=== PATIENT | female | born 1995 | race Caucasian/White ===

== ENCOUNTER 2016-10-04 00:34 | Emergency (ER) | payer SELFPAY ==
--- NOTE | 2016-10-04 00:47 | ED Physician Documentation ---
General Adult - HISTORIAN Historian: patient - HPI Stated Complaint: headache Chief Complaint: General Adult Onset: hours Timing: still present Severity: moderate Further Comments: yes (Pt is a 21 yo female with c/o migraine headache. Pt has had migraine headaches in the past and says that headache is similar on this occasion. 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 Pt has had photophobia, nausea. No focal deficits.) - ROS CONST: other (dizziness) EYES/ENT: other (photophobia) CVS/RESP: none GI/: nausea MS/SKIN/LYMPH: none NEURO/PSYCH: headache - PAST HX Past History: other (migraine headache) Surgeries/Procedures: other (tonsillectomy) Allergies/Adverse Reactions: Allergies Allergy/AdvReac Type Severity Reaction Status Date / Time No Known Allergies Allergy Verified 10/04/16 01:16 Home Medications: Ambulatory Orders Medication Instructions Recorded NK [NK] 03/28/16 - SOCIAL HX Smoking History: cigarettes - FAMILY HX Family History: No - VITAL SIGNS Vital Signs: Vital Signs Temp Pulse Resp BP Pulse Ox 128/64 09/10/16 02:15 - REVIEWED ASSESSMENTS Nursing Assessment Reviewed: Yes Vitals Reviewed: Yes Progress - Progress Progress: NS 1 L IVF Zofran 4 mg IV Dilaudid 1 mg IV improved. General Adult Physical Exam - PHYSICAL EXAM GENERAL APPEARANCE: moderate distress EENT: eye inspection normal, pharynx normal NECK: normal inspection, supple RESPIRATORY: no resp distress, chest non-tender, breath sounds normal CVS: reg rate & rhythm, heart sounds normal ABDOMEN: soft, no organomegaly, normal bowel sounds BACK: normal inspection, no CVA tenderness SKIN: warm/dry, normal color EXTREMITIES: non-tender, normal range of motion, no evidence of injury NEURO: oriented X3, CN's nml as tested, motor nml, sensation nml Discharge Clincal Impression: Migraine headache Qualifiers: Migraine type: without aura Status migrainosus presence: without status migrainosus Intractability: not intractable Qualified Code(s): G43.009 - Migraine without aura, not intractable, without status migrainosus Referrals: Primary Doctor,No [Primary Care Provider] - Home Medications: Ambulatory Orders NK [NK] 03/28/16 Condition: Good Disposition: 01 HOME, SELF-CARE Decision to Admit: NO Decision Time: 01:55
[2016-10-04] MEDS: ONDANSETRON HCL/PF 4 MG/ 2ML VIAL IVP ONE (01:05)
[2016-10-04] MEDS: HYDROmorphone HCL/PF 1 MG/ML DISP.SYRIN IVP ONE (01:05)
[2016-10-04] MEDS: 0.9 % SODIUM CHLORIDE 1,000 ML IV ONE (01:05)
[2016-10-04 01:22] VITALS: BP 121/77
[2016-10-04] MEDS: KETOROLAC TROMETHAMINE 30 MG/1ML VIAL IVP ONE (01:37)
== END 2016-10-04 02:13 | disposition home or self-care (01) ==
LOC: ED 00:34
DX: G43.009 Migraine without aura, not intractable, without status migrainosus (principal)
CPT/HCPCS: J1170; J1885; J2405; J7030; 96361; 96374; 96375; 99283; S1016

== ENCOUNTER 2017-01-29 13:01 | Emergency (ER) | payer SELFPAY ==
--- NOTE | 2017-01-29 13:44 | ED Physician Documentation ---
Hip Injury/Pain - HISTORIAN Historian: patient - HPI Stated Complaint: Bilateral Hip Pain s/p Fall Chief Complaint: Hip Pain Additional Information: states she fell 6 feet and landed on her R hip, 3 days ago. She has bruising 4CM R hip. But now complains of left hip/flank/thigh pain. worse when weight bearing. sharp achy type pain. no previous injury. dull pain R hip. no other injuries. no other complaints. Onset: days ago Where: home Severity: mild Duration: intermittent pain Context: fall Symptoms Prior to Fall: none Other Injuries: none Subsequent Symptoms: denies: sensory loss, motor loss, numbness Further Comments: yes - ROS CONST: no problems RESP: denies: shortness of breath GI/: none. denies: abdominal pain EYES/ENT: none. denies: problems with vision MS/SKIN/LYMPH: denies: neck pain NEURO/PSYCH: denies: confusion - PAST HX Cardiac Disease: none PE Risk Factors: none Surgeries/Procedures: none Immunizations: UTD Allergies/Adverse Reactions: Allergies Allergy/AdvReac Type Severity Reaction Status Date / Time No Known Allergies Allergy Verified 01/29/17 13:50 Home Medications: Ambulatory Orders Medication Instructions Recorded NK [NK] 03/28/16 - SOCIAL HX Smoking History: non-smoker Alcohol Use: none Drug Use: none - FAMILY HX Family History: No - VITAL SIGNS Vital Signs: Vital Signs Temp Pulse Resp BP Pulse Ox 88 18 123/81 99 01/29/17 13:05 01/29/17 13:05 01/29/17 13:05 01/29/17 13:05 - REVIEWED ASSESSMENTS Nursing Assessment Reviewed: Yes Vitals Reviewed: Yes ED Results Lab/Radiology - Radiology Radiology Impressions: pelvis , lumbar spine NAD. my interpretation NAD- radiologist - Orders Orders: ED Orders Category Date Time Status BILAT HIPS 2V (W/PEL IF DONE) [RAD] Stat Exams 01/29/17 13:11 Stop Req LUMBAR SPINE XR 2 OR 3 VIEWS [L SPINE 2 OR 3 VIEWS] [ Exams 01/29/17 13:11 Ordered RAD] Stat PELVIS AP 1 OR 2 VIEWS [RAD] Stat Exams 01/29/17 13:26 Ordered Ketorolac Tromethamine [Toradol] Med 01/29/17 14:17 Discontinued 60 mg IM NOW ONE methylPREDNISolone SOD SUCC [Solu-MEDROL] Med 01/29/17 14:17 Discontinued 125 mg IM NOW ONE Hip Injury/Pain Physical Exam - EXAM General Appearance: no acute distress, alert Extremities: no pedal edema, no deformity of knee, hip pain on leg movement, hip tenderness, ecchymosis. No: shortening of leg, external rotation of leg, pedal edema, knee tenderness EENT: ENT inspection normal Neck: nml inspection Respiratory: chest non-tender Abdomen: non-tender Back: non-tender Skin: warm/dry, normal color Neuro/Psych: oriented x3, neuro grossly intact, mood/affect nml Discharge Clincal Impression: Lumbar radiculopathy, acute, Fall from height of greater than 3 feet Strain of left hip and thigh Qualifiers: Encounter type: initial encounter Qualified Code(s): S76.012A - Strain of muscle, fascia and tendon of left hip, initial encounter; S76.912A - Strain of unspecified muscles, fascia and tendons at thigh level, left thigh, initial encounter Lumbar strain Qualifiers: Encounter type: initial encounter Qualified Code(s): S39.012A - Strain of muscle, fascia and tendon of lower back, initial encounter Contusion of right hip and thigh Qualifiers: Encounter type: initial encounter Qualified Code(s): S70.01XA - Contusion of right hip, initial encounter; S70.11XA - Contusion of right thigh, initial encounter Home Medications: Ambulatory Orders NK [NK] 03/28/16 Condition: Stable Disposition: 01 HOME, SELF-CARE Decision to Admit: NO Date of Decison to Admit: 01/29/17 Decision Time: 14:28
[2017-01-29] MEDS ORDERED: KETOROLAC TROMETHAMINE 60 MG/2 ML VIAL IM ONE (14:17)
[2017-01-29] MEDS ORDERED: methylPREDNISolone SOD SUCC 125 MG/2 ML VIAL IM ONE (14:17)
[2017-01-29 14:44] VITALS: BP 118/52
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
== END 2017-01-29 14:40 | disposition home or self-care (01) ==
LOC: ED 13:01
DX: S76.012A Strain of muscle, fascia and tendon of left hip, initial encounter (principal); S39.012A Strain of muscle, fascia and tendon of lower back, initial encounter; S70.01XA Contusion of right hip, initial encounter; W19.XXXA Unspecified fall, initial encounter; Y93.9 Activity, unspecified; Y99.9 Unspecified external cause status
CPT/HCPCS: 72100; 72170; J1885; J2930; 96372; 99284

== ENCOUNTER 2017-02-04 01:24 | Emergency (ER) | payer SELFPAY ==
[2017-02-04] MEDS ORDERED: HALOPERIDOL LACTATE 5 MG/ML VIAL IM ONE (01:55)
[2017-02-04] MEDS: HALOPERIDOL LACTATE 5 MG/ML VIAL IM ONE (02:02)
[2017-02-04] MEDS ORDERED: KETOROLAC TROMETHAMINE 60 MG/2 ML VIAL ONE (03:24)
[2017-02-04] MEDS: KETOROLAC TROMETHAMINE 60 MG/2 ML VIAL IM ONE (03:45)
--- NOTE | 2017-02-04 04:46 | ED Physician Documentation ---
Headache - HISTORIAN Historian: patient - HPI Stated Complaint: migraine/chest pain Chief Complaint: Headache Additional Information: stress in family, headache and chest pain tonight Onset: hours (1) Timing: abrupt, still present New Gradual Onset: Yes Exposure To: none Severity: moderate Quality: similar to previous, throbbing Associated Symptoms: sensitivity to light Preceding Symptoms: denies: visual disturbance, scotoma, typical of prior aura(s ) Exacerbated By: light, noise Further Comments: no - ROS NEURO/PSYCH: anxiety EYES/ENT: denies: sore throat, difficulty swallowing, sinus pain, drainage CVS/RESP: none GI/: denies: abdominal pain, diarrhea, problems urinating, incontinence MS/SKIN/LYMPH: denies: muscle aches, back pain, rash, skin lesions, swollen glands all systems neg except as marked: Yes - PAST HX Medical History: migraines, other (anxiety) Surgical History: tonsillectomy Immunizations: referred to PCP Allergies/Adverse Reactions: Allergies Allergy/AdvReac Type Severity Reaction Status Date / Time No Known Allergies Allergy Verified 02/04/17 01:40 Home Medications: Ambulatory Orders Medication Instructions Recorded NK [NK] 03/28/16 - SOCIAL HX Smoking History: cigarettes Alcohol Use: none Drug Use: none - Family HX Family History: none - VITAL SIGNS Vital Signs: Vital Signs Temp Pulse Resp BP Pulse Ox 97.9 F 88 19 128/87 98 02/04/17 01:24 02/04/17 01:24 02/04/17 01:24 02/04/17 01:24 02/04/17 01:24 - REVIEWED ASSESSMENTS Nursing Assessment Reviewed: Yes Vitals Reviewed: Yes Progress - Results/Orders Results/Orders: toradol 60 mg im, haldol 10 mg im ordered - Progress Progress: pt. improved with above medications on board Critical Care Note - Critical Care Note Total Time (mins): 0 ED Results Lab/Radiology - Lab Results Lab Results: none ordered - Radiology Radiology Impressions: none ordered - Orders Orders: ED Orders Category Date Time Status Haloperidol Lactate [Haldol] Med 02/04/17 01:55 Discontinued 10 mg IM .STK-MED ONE Haloperidol Lactate [Haldol] Med 02/04/17 01:54 Discontinued 10 mg IM NOW ONE Ketorolac Tromethamine [Toradol] Med 02/04/17 03:24 Discontinued 60 mg .ROUTE .STK-MED ONE Ketorolac Tromethamine [Toradol] Med 02/04/17 03:44 Discontinued 60 mg IM NOW ONE Headache Physical Exam - EXAM General Appearance: no acute distress, moderate distress EENT: no facial swelling, eyes nml inspection, PERRL Neck: normal inspection, thyroid normal, supple Respiratory: no resp distress, chest non-tender, breath sounds normal CVS: reg. rate & rhythm, heart sounds nml Abdomen: non-tender, no organomegaly, nml bowel sounds Skin: color nml, no rash, cyanosis Extremitites: non-tender, normal range of motion, no evidence of injury - NEURO/PSYCH Higher Functions: alert, oriented x3, nml speech, mood/affect nml Cranial: nml as tested, no evidence of acute CVA Cerebellar: nml as tested Sensorimotor: motor nml, sensation nml Discharge Clincal Impression: Migraine Qualifiers: Migraine type: without aura Status migrainosus presence: without status migrainosus Intractability: intractable Qualified Code(s): G43.019 - Migraine without aura, intractable, without status migrainosus Referrals: Primary Doctor,No [Primary Care Provider] - 2 Days Home Medications: Ambulatory Orders NK [NK] 03/28/16 Comments: pt. discharged to care of mother with script for Fioricet 1 p.o. qid prn headache and Phenergan 12.5 mg p.o. tid prn anxiety Condition: Stable Disposition: 01 HOME, SELF-CARE Decision to Admit: NO Decision Time: 03:30
[2017-02-04 05:35] VITALS: BP 106/52
== END 2017-02-04 04:01 | disposition home or self-care (01) ==
LOC: ED 01:24
DX: G43.019 Migraine without aura, intractable, without status migrainosus (principal)
CPT/HCPCS: 93005; J1630; J1885; 96372; 99283

== ENCOUNTER 2017-03-20 11:43 | Emergency (ER) | payer SELFPAY ==
[2017-03-20] MEDS: cefTRIAXone SODIUM 1 GM VIAL IM ONE (12:55)
[2017-03-20 13:07] VITALS: BP 118/52
[2017-03-20] MEDS ORDERED: DIAZEPAM 5 MG TABLET PO ONE (15:35)
--- NOTE | 2017-03-20 15:47 | ED Physician Documentation ---
General Adult - HISTORIAN Historian: patient - HPI Stated Complaint: painful lumps right back Chief Complaint: General Adult Onset: days ago (2) Timing: still present Severity: moderate Further Comments: yes (Pt is a 21 yo female with "lumps in her lower back." She noticed them 2 days ago and they are tender.) - ROS CONST: no problems EYES/ENT: none CVS/RESP: none GI/: none MS/SKIN/LYMPH: other ("bug bites" lower back) - PAST HX Past History: other (anxiety/depression) Allergies/Adverse Reactions: Allergies Allergy/AdvReac Type Severity Reaction Status Date / Time No Known Allergies Allergy Verified 03/20/17 11:54 Home Medications: Ambulatory Orders Medication Instructions Recorded NK [NK] 03/28/16 - SOCIAL HX Smoking History: cigarettes - FAMILY HX Family History: No - VITAL SIGNS Vital Signs: Vital Signs Temp Pulse Resp BP Pulse Ox 100.9 F H 97 H 16 130/91 98 03/20/17 11:55 03/20/17 11:55 03/20/17 11:55 03/20/17 11:55 03/20/17 11:55 - REVIEWED ASSESSMENTS Nursing Assessment Reviewed: Yes Vitals Reviewed: Yes Progress - Progress Progress: Rocephin 1 gm IM in ER Rx Keflex 500 mg po tid x 10 days. At the end of the visit pt asked if we could refill her Klonopin prescription. She says that she fills this at [facility] pharmacy in [place], but won't be able to get there for a week. She lists [facility] in [place] as her regular pharmacy. Both these pharmacies were contacted and say that they have not filled Klonopin for this patient. Pt was not given a "refill" script for Klonopin. ED Results Lab/Radiology - Orders Orders: ED Orders Category Date Time Status cefTRIAXone SODIUM [Rocephin] Med 03/20/17 12:27 Once 1 gm IM NOW ONE General Adult Physical Exam - PHYSICAL EXAM GENERAL APPEARANCE: mild distress EENT: pharynx normal NECK: normal inspection, supple RESPIRATORY: no resp distress, chest non-tender, breath sounds normal CVS: reg rate & rhythm, heart sounds normal ABDOMEN: soft, no organomegaly, normal bowel sounds BACK: other (3 erthematous, excoriated lesions on lower back, 1-2 cm each. Pt attributes to bug bites. Tender swellings in the deep to and near these, c/w lymphadenopathy.) SKIN: other (3 erthematous, excoriated lesions on lower back, 1-2 cm each. Pt attributes to bug bites. Tender swellings in the deep to and near these, c/w lymphadenopathy.) EXTREMITIES: non-tender, normal range of motion, no evidence of injury NEURO: oriented X3, motor nml, sensation nml Discharge Clincal Impression: Lymphadenopathy Referrals: Primary Doctor,No [Primary Care Provider] - 2 Days Home Medications: Ambulatory Orders NK [NK] 03/28/16 Condition: Good Disposition: 01 HOME, SELF-CARE Decision to Admit: NO Decision Time: 12:31
== END 2017-03-20 13:06 | disposition home or self-care (01) ==
LOC: ED 11:43
DX: R59.1 Generalized enlarged lymph nodes (principal)
CPT/HCPCS: 96372; 99283; J0696

== ENCOUNTER 2017-04-18 10:54 | Emergency (ER) | payer SELFPAY ==
--- NOTE | 2017-04-18 11:19 | ED Physician Documentation ---
General Adult - HISTORIAN Historian: patient - HPI Stated Complaint: sore mouth Chief Complaint: General Adult Onset: days ago (3 days) Timing: still present, worse since Severity: moderate Further Comments: yes (Patient states that she has developed a sore in you mouth 3 days ago, seems to be getting worse. Is starting to have some trouble with eating and drinking. Tried to put some lidocaine on it and over the surface of the rest of her mouth and it "did nothing for me. The only thing that got numb was my finger tips") - ROS CONST: no problems. denies: fever, chills CVS/RESP: none MS/SKIN/LYMPH: denies: none NEURO/PSYCH: denies: headache - PAST HX Past History: none Other History: other (anxiety/panic attacks) Surgeries/Procedures: other (T&A) Allergies/Adverse Reactions: Allergies Allergy/AdvReac Type Severity Reaction Status Date / Time fluoxetine HCl [From Prozac] Allergy Verified 04/18/17 11:28 paroxetine HCl [From Paxil] Allergy Verified 04/18/17 11:28 ropinirole HCl [From Requip] Allergy Verified 04/18/17 11:20 Home Medications: Ambulatory Orders Medication Instructions Recorded Sertraline HCl [Zoloft] 100 mg PO DAILY 04/18/17 - SOCIAL HX Smoking History: less than 1 pack/day (1/2 ppd) Alcohol Use: none Drug Use: none - FAMILY HX Family History: No - VITAL SIGNS Vital Signs: Vital Signs Temp Pulse Resp BP Pulse Ox 118/52 03/20/17 13:06 - REVIEWED ASSESSMENTS Nursing Assessment Reviewed: Yes Vitals Reviewed: Yes Progress - Progress Progress: Patient was advised that this was caused by a virus and she would need to give it time to heal. Was given visous lidocaine and advised to mix it with some Mylanta. General Adult Physical Exam - PHYSICAL EXAM GENERAL APPEARANCE: no distress EENT: eye inspection normal, pharynx normal, no signs of dehydration, other ( superficial shallow ulceration to the buccal mucosa.) NECK: lymphadenopathy (mild, anterior) RESPIRATORY: no resp distress, chest non-tender, breath sounds normal. No: wheezes, rales, rhonchi CVS: reg rate & rhythm, heart sounds normal, equal pulses SKIN: warm/dry, normal color NEURO: mood/affect nml, cognition normal Discharge Clincal Impression: Herpangina Referrals: Primary Doctor,No [Primary Care Provider] - 2 Days Additional Instructions: Gargle with salt water. Drink a lot of fluids. This condition is contagious. Symptom should improve within a week. Home Medications: Ambulatory Orders Sertraline HCl [Zoloft] 100 mg PO DAILY 04/18/17 Condition: Stable Disposition: 01 HOME, SELF-CARE Decision to Admit: NO Date of Decison to Admit: 04/18/17 Decision Time: 11:34
[2017-04-18 11:27] VITALS: BP 126/88
== END 2017-04-18 11:55 | disposition home or self-care (01) ==
LOC: ED 10:54
DX: B08.5 Enteroviral vesicular pharyngitis (principal)
CPT/HCPCS: 99283

== ENCOUNTER 2017-06-22 17:53 | Emergency (ER) | payer SELFPAY ==
[2017-06-22] MEDS ORDERED: KETOROLAC TROMETHAMINE 60 MG/2 ML VIAL IM ONE (18:10)
[2017-06-22] MEDS ORDERED: ONDANSETRON HCL/PF 4 MG/ 2ML VIAL IM ONE (18:10)
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
--- NOTE | 2017-06-22 18:42 | Diagnostic Imaging Report ---
NEELA ESCOBEDO~ [facility] [address] [facility] [address] [address] ~ ~ ~ ~ Report Submission Date: Jun 22, 2017 6:40:18 PM CDT Patient ~ Study Name: MILLIE QUEEN ~ Date: Jun 22, 2017 6:17:30 PM CDT ~ Modality Type: CR Gender: F ~ Description: UPPER EXTREMITY : 94 ~ Institution: [facility] Physician: NEELA ESCOBEDO ~ ~ ~ ~ Examination: Plain film hand History: Hand discomfort Comparison exams: None available Findings: 3 views the hand demonstrate normal cortical margins. No fracture.~ No dislocation. No soft tissue abnormality. Impression: No acute osseous abnormality ~ Electronically signed on Jun 22, 2017 6:40:18 PM CDT by: Fredrick HALL
[2017-06-22] MEDS ORDERED: diphenhydrAMINE HCL 50 MG/ML VIAL IM ONE (19:02)
[2017-06-22 19:28] VITALS: BP 128/62
== END 2017-06-22 19:25 | disposition home or self-care (01) ==
LOC: ED 17:53
DX: R51 Headache (principal); M79.1 Myalgia
CPT/HCPCS: 73130; J1200; J1885; J2405; 96372; 99283

== ENCOUNTER 2017-09-16 12:49 | Emergency (ER) | payer SELFPAY ==
--- NOTE | 2017-09-16 12:58 | ED Physician Documentation ---
Skin Rash - HISTORIAN Historian: patient - HPI Chief Complaint: Skin Rash Additional Information: 22-year-old white female who states that she had some skin rash over the last three weeks. Patient had a lesion to her mid upper gluteal falls area that she is concerned about possible MSRA. Patient is not had any training from [facility]. Patient data area is tender to touch. Patient over the last several days has developed the region to the inferior nasal area and left chin. Patient denies any fever or chills. Onset: other (3 weeks ) Timing: still present Location: facial, trunk Identified Cause?: No Where: other ([facility]) - ROS CONST: none. denies: fever, chills - PAST HX Past History: none Other History: none Surgeries/Procedures: No Immunizations: referred to PCP Allergies/Adverse Reactions: Allergies Allergy/AdvReac Type Severity Reaction Status Date / Time fluoxetine HCl [From Prozac] Allergy Verified 09/16/17 13:02 paroxetine HCl [From Paxil] Allergy Verified 09/16/17 13:02 ropinirole HCl [From Requip] Allergy Verified 09/16/17 13:02 Home Medications: Ambulatory Orders Medication Instructions Recorded Doxycycline Monohydrate 100 mg PO D #14 capsule 09/16/17 [Vibramycin] - SOCIAL HX Smoking History: less than 1 pack/day (1/2 ppd) Alcohol Use: none Drug Use: none - FAMILY HX Family History: none - VITAL SIGNS Vital Signs: Vital Signs Temp Pulse Resp BP Pulse Ox 98.3 F 89 16 150/86 98 09/16/17 13:13 09/16/17 13:13 09/16/17 13:13 09/16/17 13:13 09/16/17 13:13 - REVIEWED ASSESSMENTS Nursing Assessment Reviewed: Yes Vitals Reviewed: Yes Progress - Results/Orders Results/Orders: I did not have any drainage to culture. Patient was advised that the not feel that this was an MRSA infection possibly related to strep or other staph. Skin Rash Physical Exam - EXAM General Appearance: no acute distress Skin: warm,dry Location: face (infranasal area, chin), other (1.8 cm area to superior gluteal fold, hard, nodular) Symptoms: warmth, tenderness Neck: trachea midline, lymphadenopathy (on left anterior) Respiratory: no resp distress CVS: reg. rate & rhythm Neuro/Psych: oriented x3, mood/affect nml Discharge Clincal Impression: Cellulitis of buttock Cellulitis Qualifiers: Site of cellulitis: face Qualified Code(s): L03.211 - Cellulitis of face Prescriptions: Doxycycline Monohydrate [Vibramycin] 100 mg PO D #14 capsule Referrals: Primary Doctor,No [Primary Care Provider] - 2 Days Additional Instructions: Take Doxycycline 100mg twice a day for seven days. If not doing any better in one week to follow-up with your primary care provider. Condition: Stable Disposition: 01 HOME, SELF-CARE Decision to Admit: NO Date of Decison to Admit: 09/16/17 Decision Time: 13:01
[2017-09-16 13:06] VITALS: BP 150/86
== END 2017-09-16 13:13 | disposition home or self-care (01) ==
LOC: ED 12:49
DX: L03.317 Cellulitis of buttock (principal); L03.211 Cellulitis of face
CPT/HCPCS: 99283

== ENCOUNTER 2017-10-14 17:05 | Emergency (ER) | payer SELFPAY ==
[2017-10-14 17:44] VITALS: BP 117/63
--- NOTE | 2017-10-14 18:23 | ED Physician Documentation ---
Skin Rash - HISTORIAN Historian: patient - HPI Stated Complaint: bug bites Chief Complaint: Skin Rash Additional Information: diffuse skin rash sl similar to urticaria-onset while visiting klpt at [facility] yesterday-spreading scratching makes worse Onset: days ago (1) Timing: worse Duration: persistent since Location: generalized Quality: itchy, burning. denies: painful Identified Cause?: No Context: Medication Exposure: none Context: Food Exposure: none Context: Other Exposure: denies: bee sting, wasp sting, ant bite, spider bite - ROS CONST: none CVS/RESP: none EYES/ENT: none GI/: none MS/SKIN/LYMPH: none NEURO/PSYCH: none - PAST HX Past History: none Other History: allergy to poison ibeth, other (had prev scabies) Allergies/Adverse Reactions: Allergies Allergy/AdvReac Type Severity Reaction Status Date / Time fluoxetine HCl [From Prozac] Allergy Verified 10/14/17 17:39 paroxetine HCl [From Paxil] Allergy Verified 10/14/17 17:39 ropinirole HCl [From Requip] Allergy Verified 10/14/17 17:39 Home Medications: Ambulatory Orders Medication Instructions Recorded NK [NK] 10/14/17 - SOCIAL HX Smoking History: less than 1 pack/day Alcohol Use: rarely Drug Use: none - FAMILY HX Family History: none - VITAL SIGNS Vital Signs: Vital Signs Temp Pulse Resp BP Pulse Ox 98.2 F 84 16 117/63 99 10/14/17 17:41 10/14/17 17:41 10/14/17 17:41 10/14/17 17:41 10/14/17 17:41 - REVIEWED ASSESSMENTS Nursing Assessment Reviewed: Yes Vitals Reviewed: Yes Skin Rash Physical Exam - EXAM General Appearance: mild distress, moderate distress Skin: warm,dry, tender indurated area, skin rash, erythema. No: pointing fluctuant with lymphangitis Location: generalized Character: asymmetric, urticarial Symptoms: warmth Extremities: non-tender, nml ROM, no edema Neck: trachea midline Respiratory: no resp distress, chest non-tender, breath sounds normal CVS: reg. rate & rhythm, heart sounds nml Abdomen: non-tender Neuro/Psych: oriented x3, motor nml, sensation nml, mood/affect nml Discharge Clincal Impression: skin rash udo-urticaria Referrals: Primary Doctor,No [Primary Care Provider] - 2 Days Additional Instructions: get otc claritin and zantac Condition: Good Disposition: 01 HOME, SELF-CARE Decision to Admit: NO Decision Time: 18:27
[2017-10-14] MEDS ORDERED: methylPREDNISolone SOD SUCC 125 MG/2 ML VIAL IM ONE (18:26)
== END 2017-10-14 19:00 | disposition home or self-care (01) ==
LOC: ED 17:05
DX: L50.9 Urticaria, unspecified (principal)
CPT/HCPCS: 96372; 99282; J2930

== ENCOUNTER 2018-04-30 23:09 | Emergency (ER) | payer SELFPAY ==
[2018-04-30] MEDS ORDERED: KETOROLAC TROMETHAMINE 60 MG/2 ML VIAL IM ONE (23:30)
--- NOTE | 2018-04-30 23:32 | ED Physician Documentation ---
Sore Throat/Dental Pain - HISTORIAN Historian: patient - HPI Chief Complaint: Dental Pain Further Comments: yes (22 year old female patient presents with left ear pain /; radiating to eye and jaw.) - ROS CONST: no problems CVS/RESP: none GI/: denies: nausea, vomiting MS/SKIN/LYMPH: denies: muscle aches, rash, leg swelling NEURO/PSYCH: headache. denies: none - PAST HX Past History: denies: none Other History: other (depression - stopped her medications) Allergies/Adverse Reactions: Allergies Allergy/AdvReac Type Severity Reaction Status Date / Time fluoxetine HCl [From Prozac] Allergy Verified 04/30/18 23:22 paroxetine HCl [From Paxil] Allergy Verified 04/30/18 23:22 ropinirole HCl [From Requip] Allergy Verified 04/30/18 23:22 Home Medications: Ambulatory Orders Medication Instructions Recorded NK [NK] 10/14/17 - SOCIAL HX Smoking History: cigarettes - FAMILY HX Family History: No - VITAL SIGNS Vital Signs: Vital Signs Temp Pulse Resp BP Pulse Ox 117/63 10/14/17 19:09 - REVIEWED ASSESSMENTS Nursing Assessment Reviewed: Yes Vitals Reviewed: Yes Progress - Progress Progress: Patient states she doesn't have a dentist and no money for oral surgeon. [facility] information provided. Treated for pain with toradol IM. ED Results Lab/Radiology - Orders Orders: ED Orders Category Date Time Status Ketorolac Tromethamine [Toradol] Med 04/30/18 23:30 Once 60 mg IM NOW ONE Dental Pain Physical Exam - EXAM General Appearance: mild distress Head/Neck: head nml inspection, trachea midline, no lymphadenopathy, thyroid nml , neck nml inspection Eyes: eyes nml inspection, PERRL Mouth/Throat: lips nml, gums nml, pharynx nml, voice nml, no drooling, no air way problems, no thrush, membranes nml, dental tenderness, widespread dental decay (wide spread decay with multiple molars with decay to gumline; no abscess or erythema noted. ). No: gum swelling around teeth Respiratory: no resp. distress CVS: reg. rate & rhythm Abdomen: soft, no organomegaly, normal bowel sounds, no abdominal bruit, no distension Skin: normal color, warm/dry, NR, INT, PAL, DR Neuro/Psych: No: none Discharge Clincal Impression: Chronic dental pain Referrals: Primary Doctor,No [Primary Care Provider] - 2 Days Additional Instructions: Ibuprofen 800mg every 8 hours x 3 days Tylenol 650-1000mg every 4 hours as needed for pain, limit your dose to 4G in 24 hours. Over the counter [employer] - follow package directions. 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 See your dentist as soon as possible Condition: Stable Disposition: 01 HOME, SELF-CARE Decision to Admit: NO Decision Time: 23:31
[2018-05-01 01:44] VITALS: BP 116/82
== END 2018-04-30 23:48 | disposition home or self-care (01) ==
LOC: ED 23:09
DX: K08.89 Other specified disorders of teeth and supporting structures (principal)
CPT/HCPCS: 96372; 99283; J1885

== ENCOUNTER 2018-12-13 18:52 | Emergency (ER) | payer SELFPAY ==
[2018-12-13 19:12] VITALS: BP 162/91
[2018-12-13] MEDS ORDERED: ACETAMINOPHEN 500 MG TABLET PO ONE (19:25)
[2018-12-13] MEDS ORDERED: IBUPROFEN 400 MG TABLET PO ONE (19:25)
--- NOTE | 2018-12-13 19:30 | ED Physician Documentation ---
Upper Respiratory Symptoms - HISTORIAN Historian: patient - HPI Stated Complaint: Congestion Chief Complaint: Upper Respiratory Symptoms Onset: days ago (11) Severity: moderate Associated Symptoms: fever, chills, runny nose, sinus pain, sinus drainage, sore throat, productive cough Further Comments: yes (23 year old female patient presents with complaint of fever, chills, runny nose, congestion, body aches; has not taken any OTC medications today.) - ROS CONST/EYES: denies: weakness, eye redness, eye itching, other CVS/RESP: none LYMPH: denies: leg swelling, rash, swollen glands, ankle swelling, other GI/: none NEURO/PSYCH: denies: fainting, dizziness, confusion, anxiety, depression, other - PAST HX Lung Disease: none Allergies/Adverse Reactions: Allergies Allergy/AdvReac Type Severity Reaction Status Date / Time fluoxetine HCl [From Prozac] Allergy Verified 12/13/18 19:13 paroxetine HCl [From Paxil] Allergy Verified 12/13/18 19:13 ropinirole HCl [From Requip] Allergy Verified 12/13/18 19:13 Home Medications: Ambulatory Orders Medication Instructions Recorded Azithromycin [Zithromax] 250 mg PO DAILY #6 tablet 12/13/18 - SOCIAL HX Smoking History: cigarettes - FAMILY HX Family History: denies: none - VITAL SIGNS Vital Signs: Vital Signs Temp Pulse Resp BP Pulse Ox 98.5 F 92 H 15 162/91 100 12/13/18 19:00 12/13/18 19:00 12/13/18 19:00 12/13/18 19:00 12/13/18 19:00 - REVIEWED ASSESSMENTS Nursing Assessment Reviewed: Yes Vitals Reviewed: Yes ED Results Lab/Radiology - Orders Orders: ED Orders Category Date Time Status INFLUENZA A&B Stat Lab 12/13/18 19:07 Ordered Acetaminophen [Tylenol Extra Strength] Med 12/13/18 19:25 Once 1,000 mg PO NOW ONE Ibuprofen [Advil] Med 12/13/18 19:25 Once 800 mg PO NOW ONE Upper Respiratory Symptoms - EXAM General Appearance: mild distress (ill appearing) EENT: eyes nml inspection, PERRL, pain over sinuses, maxillary, TM erythema (right), purulent nasal drainage. No: pharyngeal erythema Respiratory: no resp. distress, breath sounds nml, no pain on inspiration, speaks full sentences, no pleuritic chest pain, other (cough) CVS: reg rate & rhythm, heart sounds normal, equal pulses, no murmur, no gallop, PMI nml, no JVD, no friction rub, 24 Skin: color nml, no rash, warm,dry Extremities: non-tender, normal range of motion, no evidence of injury, no edema, J, [employer] Neuro/Psych: oriented x3, neuro intact, mood/affect nml, CN's nml as tested Discharge Clincal Impression: Otitis media Qualifiers: Otitis media type: suppurative Chronicity: acute Laterality: right Recurrence: non-recurrent Spontaneous tympanic membrane rupture: without spontaneous rupture Qualified Code(s): H66.001 - Acute suppurative otitis media without spontaneous rupture of ear drum, right ear Maxillary sinusitis Qualifiers: Chronicity: acute Recurrence: non-recurrent Qualified Code(s): J01.00 - Acute maxillary sinusitis, unspecified Prescriptions: Azithromycin [Zithromax] 250 mg PO DAILY #6 tablet Referrals: Primary Doctor,No [Primary Care Provider] - 2 Days Additional Instructions: supervisor bit and shank department your antibiotic and start it today. supervisor bit and shank department an over the counter decongestant such as pseudoped, dayquil and Nyquil at your pharmacy. Dayquil can be taken every 4 hours. (Caution: Dayquil and Nyquil contain 325mg of tyelnol/acetaminophen per tablespoon) You may want to try Vicks rub on your chest and/or feet. Cough drops as needed for cough and sore throat. Increase your fluid intake juices, hot tea, non-caffeinated beverages Use a humidifier in the room where you sleep. You can also sit in a steam filled bathroom 1-2 times a day. Tylenol every 4 hours 650mg -1000mg (do not exceed 4000mg in 24 hours) as needed for fever, pain and body aches. Alternate with Ibuprofen Ibuprofen 600-800mg every 6 hours as needed for fever, pain and body aches. Condition: Stable Disposition: 01 HOME, SELF-CARE Decision to Admit: NO Decision Time: 19:29
== END 2018-12-13 19:30 | disposition home or self-care (01) ==
LOC: ED 18:52
DX: H66.001 Acute suppurative otitis media without spontaneous rupture of ear drum, right ear (principal); J01.00 Acute maxillary sinusitis, unspecified; Z72.0 Tobacco use
CPT/HCPCS: 87400; 99283

== ENCOUNTER 2019-02-07 04:28 | Emergency (ER) | payer SELFPAY ==
[2019-02-07] MEDS ORDERED: ONDANSETRON HCL/PF 4 MG/ 2ML VIAL IVP ONE (04:54)
[2019-02-07] MEDS ORDERED: diphenhydrAMINE HCL 50 MG/ML VIAL IVP ONE (04:54)
[2019-02-07] MEDS ORDERED: KETOROLAC TROMETHAMINE 30 MG/1ML VIAL IV ONE (04:54)
[2019-02-07] MEDS ORDERED: methylPREDNISolone SOD SUCC 125 MG/2 ML VIAL IVP ONE (04:54)
[2019-02-07] MEDS ORDERED: 0.9 % SODIUM CHLORIDE 1,000 ML IV ONE (04:55)
--- NOTE | 2019-02-07 05:02 | ED Physician Documentation ---
Headache - HISTORIAN Historian: patient - HPI Stated Complaint: c/o headache Chief Complaint: Headache Additional Information: Patient presents to ED with a 12 hour history of migraine. Patient the pain is throbbing at the base of her skull (10/10 rating), radiating to her forehead. She has associated photophobia and nausea. This headache is similar to headaches in the past. She took fiorecet earlier without improvement. Onset: hours (12) Timing: gradual Exposure To: none Severity: moderate Quality: similar to previous, throbbing Associated Symptoms: denies: fever, chills, neck pain, stiffness Preceding Symptoms: denies: visual disturbance Exacerbated By: light - ROS NEURO/PSYCH: denies: confusion EYES/ENT: denies: difficulty swallowing CVS/RESP: denies: chest pain, shortness of breath GI/: denies: abdominal pain MS/SKIN/LYMPH: denies: muscle aches - PAST HX Medical History: no pertinent history Surgical History: noncontributory Allergies/Adverse Reactions: Allergies Allergy/AdvReac Type Severity Reaction Status Date / Time fluoxetine HCl [From Prozac] Allergy Verified 02/07/19 05:03 paroxetine HCl [From Paxil] Allergy Verified 02/07/19 05:03 ropinirole HCl [From Requip] Allergy Verified 02/07/19 05:03 Home Medications: Ambulatory Orders Medication Instructions Recorded Butalb/Acetaminophen/Caffeine 2 PO Q6 PRN 02/07/19 [Fioricet 50-325-40 mg Tablet] Ondansetron HCl Rapdis [Zofran Odt] 4 mg PO Q8 PRN #30 tab 02/07/19 - SOCIAL HX Smoking History: cigarettes Alcohol Use: none Drug Use: marijuana - Family HX Family History: none - VITAL SIGNS Vital Signs: Vital Signs Temp Pulse Resp BP Pulse Ox 97.7 F 58 L 20 121/88 100 02/07/19 04:51 02/07/19 04:51 02/07/19 04:51 02/07/19 04:51 02/07/19 04:51 - REVIEWED ASSESSMENTS Nursing Assessment Reviewed: Yes Vitals Reviewed: Yes Progress - Progress Progress: 0610 Patient states headache is better, currently 4/10 ED Results Lab/Radiology - Orders Orders: ED Orders Category Date Time Status IV Started NOW Care 02/07/19 04:[address] IV Lock 1T Care 02/07/19 04:54 Active 0.9 % Sodium Chloride [Normal Saline] 1,000 ml Med 02/07/19 04:55 Discontinued IV Q1H Ketorolac Tromethamine [Toradol] Med 02/07/19 04:54 Discontinued 30 mg IV NOW ONE Ondansetron HCl/Pf [Zofran] Med 02/07/19 04:54 Discontinued 4 mg IVP NOW ONE diphenhydrAMINE HCL [Benadryl] Med 02/07/19 04:54 Discontinued 50 mg IVP NOW ONE methylPREDNISolone SOD SUCC [SOLU-Medrol] Med 02/07/19 04:54 Discontinued 125 mg IVP NOW ONE Headache Physical Exam - EXAM General Appearance: no acute distress, alert EENT: PERRL Neck: supple Respiratory: no resp distress, chest non-tender, breath sounds normal CVS: reg. rate & rhythm, heart sounds nml Abdomen: non-tender, no distention Extremitites: non-tender, no edema - NEURO/PSYCH Higher Functions: alert, oriented x3, nml speech, mood/affect nml Cranial: no evidence of acute CVA Cerebellar: nml as tested Sensorimotor: motor nml, sensation nml Discharge Clincal Impression: Migraine Qualifiers: Migraine type: without aura Status migrainosus presence: without status migrainosus Intractability: not intractable Qualified Code(s): G43.009 - Migraine without aura, not intractable, without status migrainosus Prescriptions: Ondansetron HCl Rapdis [Zofran Odt] 4 mg PO Q8 PRN #30 tab PRN Reason: nausea/headache Referrals: Primary Doctor,No [Primary Care Provider] - 2 Days Additional Instructions: 1. Tylenol, Ibuprofen, or fioricet as needed for headache 2. Take Zofran and Benedryl with pain medications for better results 3. Drink plenty of fluids to maintain proper hydration. Avoid caffeine and alcohol 4. Follow up with PCP within 1 week 5. Return to ER for new or worsening symptoms Condition: Stable Disposition: 01 HOME, SELF-CARE Decision to Admit: NO Date of Decison to Admit: 02/07/19 Decision Time: 06:23
[2019-02-07 06:45] VITALS: BP 102/57
== END 2019-02-07 06:35 | disposition home or self-care (01) ==
LOC: ED 04:28
DX: G43.009 Migraine without aura, not intractable, without status migrainosus (principal)
CPT/HCPCS: 96374; 96375; 99283; 99284; J1200; J1885; J2405; J2930; J7030; S1016

== ENCOUNTER 2019-06-13 17:04 | Emergency (ER) | payer SELFPAY ==
--- NOTE | 2019-06-13 17:11 | ED Physician Documentation ---
General Adult - HISTORIAN Historian: patient - HPI Stated Complaint: sore areas and mouth pain (known dental issues) Chief Complaint: Skin Rash Onset: days ago (5) Timing: still present Severity: moderate Further Comments: yes (She states her right side of mouth hurts on and off "for a long time and I know I have issues with my teeth" Denies any new injury. No fever. She states she has these "Sores" all over her body. back. right lower leg and left arm. No fever. She has "terrible odor like people" on the back area.) - ROS CONST: no problems MS/SKIN/LYMPH: rash - PAST HX Past History: none Immunizations: UTD Allergies/Adverse Reactions: Allergies Allergy/AdvReac Type Severity Reaction Status Date / Time fluoxetine HCl [From Prozac] Allergy Verified 06/13/19 17:25 paroxetine HCl [From Paxil] Allergy Verified 06/13/19 17:25 ropinirole HCl [From Requip] Allergy Verified 06/13/19 17:25 Home Medications: Ambulatory Orders Medication Instructions Recorded NK 06/13/19 - SOCIAL HX Smoking History: cigarettes Alcohol Use: none Drug Use: none - FAMILY HX Family History: No - VITAL SIGNS Vital Signs: Vital Signs Temp Pulse Resp BP Pulse Ox 102/57 02/07/19 06:43 - REVIEWED ASSESSMENTS Nursing Assessment Reviewed: Yes Vitals Reviewed: Yes General Adult Physical Exam - PHYSICAL EXAM GENERAL APPEARANCE: no distress EENT: eye inspection normal, no signs of dehydration, other (several caries. no drainage. in teeth ) NECK: normal inspection RESPIRATORY: no resp distress, chest non-tender, breath sounds normal CVS: reg rate & rhythm, heart sounds normal ABDOMEN: soft, no distension BACK: normal inspection SKIN: other (several small and large (2 cm to 4 cm circular) areas various stages open, red crusting. Back mid 4 cm yellow/green drainage noted with odor. NO streaking. ) EXTREMITIES: non-tender NEURO: oriented X3 Discharge Clincal Impression: Abscess Referrals: Primary Doctor,No [Primary Care Provider] - 2 Days Comments: 1. Keep area clean and dry 2. Clindamycin 300 mg take 1 by mouth three times per day x 10 days 3. Return to PCP in 2-4 days if any increased concerns 4. Return to ER for any increased concerns Condition: Stable Disposition: 01 HOME, SELF-CARE Decision to Admit: NO Date of Decison to Admit: 06/13/19 Decision Time: 17:28
[2019-06-13 17:30] VITALS: BP 122/84
== END 2019-06-13 17:35 | disposition home or self-care (01) ==
LOC: ED 17:04
DX: K12.2 Cellulitis and abscess of mouth (principal)
CPT/HCPCS: 87070; 87186; 99283; 99284

== ENCOUNTER 2019-07-31 20:58 | Emergency (ER) | payer SELFPAY ==
--- NOTE | 2019-07-31 21:25 | ED Physician Documentation ---
Ear Complaints - HISTORIAN Historian: patient - HPI Stated Complaint: Lt side of face/ear/jaw swelling & pain Chief Complaint: Ear Complaints Additional Information: Patient presents to ED with left ear pain and swelling. Patient states she had a boil in her ear a couple of days ago and she popped it. Today her left ear began to swell traveling to her neck and face. She states her left jaw and inside of her mouth hurts also. She had left over clindamycin and keflex which she took today without much improvement. Timing: still present, worse Location of Pain: L ear Severity: moderate Associated Symptoms: sharp pain, aching. denies: fever, trauma to ear - ROS CONST: no problems CVS/RESP: none GI/: denies: nausea MS/SKIN/LYMPH: none NEURO/PSYCH: none - PAST HX Past History: none Allergies/Adverse Reactions: Allergies Allergy/AdvReac Type Severity Reaction Status Date / Time fluoxetine HCl [From Prozac] Allergy Verified 07/31/19 21:22 paroxetine HCl [From Paxil] Allergy Verified 07/31/19 21:22 ropinirole HCl [From Requip] Allergy Verified 07/31/19 21:22 Home Medications: Ambulatory Orders Medication Instructions Recorded Methylprednisolone [Medrol] 4 mg PO DIRECTED #1 tab.ds.pk 07/31/19 Sulfamethoxazole/Trimethoprim 1 each PO BID 14 Days #28 tab 07/31/19 [Bactrim Ds] - SOCIAL HX Smoking History: cigarettes Alcohol Use: none Drug Use: none - FAMILY HX Family History: No - VITAL SIGNS Vital Signs: Vital Signs Temp Pulse Resp BP Pulse Ox 98.7 F 101 H 18 140/101 99 07/31/19 20:59 07/31/19 20:59 07/31/19 20:59 07/31/19 20:59 07/31/19 20:59 - REVIEWED ASSESSMENTS Nursing Assessment Reviewed: Yes Vitals Reviewed: Yes ED Results Lab/Radiology - Orders Orders: ED Orders Category Date Time Status Lidocaine 1% 5ml [Xylocaine] Med 07/31/19 21:22 Once 50 mg IM NOW ONE cefTRIAXone SODIUM [Rocephin] 1 gm Med 07/31/19 21:22 Ordered Lidocaine 1% 5ml [Xylocaine] 2.1 ml IM NOW methylPREDNISolone SOD SUCC [SOLU-Medrol] Med 11/06/19 21:22 Once 125 mg IM NOW ONE Ear Complaint Physical Exam - EXAM General Appearance: no acute distress, alert, anxious Ear: pain w movement of auricl, left, swelling of canal, TM's nml Mouth/Throat: gums nml, pharynx nml Nose: nml inspection Head/Neck: atraumatic, facial swelling (left ). No: cervical lymphadenopathy Eye: PERRL Resp/CVS: chest non-tender, breath sounds nml Abdomen: non-tender Skin: nml color Neuro/Psych: oriented x3, mood/affect nml Discharge Clincal Impression: Cellulitis of left ear canal Prescriptions: Methylprednisolone [Medrol] 4 mg PO DIRECTED #1 tab.ds.pk Sulfamethoxazole/Trimethoprim [Bactrim Ds] 1 each PO BID 14 Days #28 tab Referrals: Primary Doctor,No [Primary Care Provider] - 2 Days Additional Instructions: 1. Take antibiotic until gone. Drink 64 ounces of water daily while taking this antibiotic 2. Start Medrol dose pack on 08/01/19 3. Wash area with antibacterial soap twice daily 4. Tylenol as needed for pain 5. Follow up with PCP within 1 week 6. Return to ER for new or worsening symptoms Condition: Stable Disposition: 01 HOME, SELF-CARE Decision to Admit: NO Date of Decison to Admit: 07/31/19 Decision Time: 21:29
[2019-07-31] MEDS: cefTRIAXone SODIUM 1 GM in Lidocaine 1% 5ml 2.1 ML IM ONE (21:43)
[2019-07-31] MEDS: methylPREDNISolone SOD SUCC 125 MG/2 ML VIAL IM ONE (21:43)
[2019-07-31] MEDS: Lidocaine 1% 5ml 10 MG/ML VIAL IM ONE (21:44)
[2019-07-31 21:51] VITALS: BP 122/84
== END 2019-07-31 21:45 | disposition home or self-care (01) ==
LOC: ED 20:58
DX: H60.12 Cellulitis of left external ear (principal)
CPT/HCPCS: 96372; 99284; J0696; J2930